=== PATIENT | male | born 1995 ===

== ENCOUNTER 2017-06-04 19:53 | Inpatient (IN) | payer OTHER ==
[~2017-06-04] VITALS: Ht 170.2 cm; Wt 62.6 kg
[2017-06-04] MEDS ORDERED: ZOFRAN8 MG PO (20:56)
[2017-06-04 22:43] VITALS: BP 139/69; PULSE 46; TEMP 97.5
[2017-06-05 02:09] VITALS: BP 112/59; PULSE 66; TEMP 98.9
[2017-06-05 05:24] VITALS: BP 124/74; PULSE 48; TEMP 98
[2017-06-05 09:51] VITALS: BP 137/65; PULSE 52; TEMP 98.9
[2017-06-05 13:13] LABS: CALCIUM 9.2 mg/dL (8.4-10.2); CREATININE, serum 0.9 mg/dL (0.66-1.25); MAGNESIUM 1.7 mg/dL (1.6-2.3); POTASSIUM 3.8 mmol/L (3.4-5.0)
[2017-06-05 13:29] VITALS: BP 143/71; PULSE 66; TEMP 98.6
[2017-06-05 17:16] VITALS: BP 129/75; PULSE 61; TEMP 98.7
[2017-06-05 22:20] VITALS: BP 139/75; PULSE 51; TEMP 99.1
[2017-06-06 02:28] VITALS: BP 135/67; PULSE 50; TEMP 97.5
[2017-06-06 06:56] VITALS: BP 132/59; PULSE 40; TEMP 98.5
[2017-06-06 09:47] VITALS: BP 143/69; PULSE 57; TEMP 98.5
[2017-06-06 14:08] VITALS: BP 123/63; PULSE 65; TEMP 98.2
[2017-06-06 17:29] VITALS: BP 132/75; PULSE 56; TEMP 99
[2017-06-06 23:36] VITALS: BP 125/70; PULSE 58; TEMP 98.1
[2017-06-07 06:31] VITALS: BP 130/78; PULSE 50; TEMP 97.8
[2017-06-07] MEDS ORDERED: ZOFRAN 4MG T4 MG/TAB PO (09:31)
[2017-06-07 09:48] LABS: BASO % 0.4 % (0.0-2.0); EOS # 0.1 (0.0-0.7); EOS % 0.7 % (0-4.0); GRAN % 69.2 % (42.2-75.2); HEMATOCRIT 37.4 % (42.0-52.0); HEMOGLOBIN 13.4 g/dl (13.5-18.0); LYMPH # 1.7 (1.2-3.4); LYMPH % 23.4 % (20.0-51.0); MEAN CELL VOLUME 83 fl (80.0-100.0); MEAN CORPUSCULAR HEMOGLOBIN 30 pg (27.0-31.0); MEAN CORPUSCULAR HGB CONC 36 g/dl (33.0-37.0); MEAN PLATELET VOLUME 9.9 fl (7.4-10.4); MONO # 0.4 (0.1-0.6); PLATELET COUNT 291 K/mm3 (130-400); RED BLOOD COUNT 4.52 M/mm3 (4.20-5.60); REDCELL DISTRIBUTION WIDTH-CV 11.8 % (11.5-14.5)
[2017-06-07 09:49] VITALS: BP 152/75; PULSE 59; TEMP 98.9
[2017-06-07 10:00] LABS: CALCIUM 9.8 mg/dL (8.4-10.2); CREATININE, serum 0.9 mg/dL (0.66-1.25); MAGNESIUM 1.8 mg/dL (1.6-2.3)
[2017-06-07 14:33] VITALS: BP 133/70; PULSE 60; TEMP 99.1
== END 2017-06-07 18:20 | disposition home or self-care (01) | DRG 392 ==
LOC: SURG 19:53
PROVIDERS: Internal Medicine; Physician Assistant
DX: A08.4 Viral intestinal infection, unspecified (principal); E86.0 Dehydration
CPT/HCPCS: 99232-AI; 99239; J1650; J2405; J2550; J7030